=== PATIENT | female | born 1990 | race Caucasian/White ===

== ENCOUNTER 2022-05-06 08:48 | Emergency (ER) | payer BC ==
[2022-05-06] MEDS ORDERED: FLUORESCEIN NA 1 EA STRIP ONE (08:59)
[2022-05-06 09:12] VITALS: BP 143/94; PULSE 88; TEMP 98.1; BMI 29.7
== END 2022-05-06 09:26 | disposition home or self-care (01) ==
LOC: FER 08:48
DX: S05.02XA Injury of conjunctiva and corneal abrasion without foreign body, left eye, initial encounter (principal); W26.8XXA Contact with other sharp object(s), not elsewhere classified, initial encounter
CPT/HCPCS: 99283-25